=== PATIENT | male | born 1995 | race African-American/Black ===

== ENCOUNTER 2021-02-26 05:23 | Emergency (ER) | payer OTHER ==
[~2021-02-26] VITALS: Ht 175.3 cm; Wt 69.5 kg
[2021-02-26] MEDS ORDERED: FLON27.5 NARES (05:29)
[2021-02-26 07:02] LABS: BASO # 0.1 10^3/uL (0.0-0.2); BASO % 0.6 % (0.0-1.0); EOS # 0.1 10^3/uL (0.0-0.5); EOS % 0.7 % (0.0-3.0); HEMATOCRIT 44.2 % (42.0-52.0); HEMOGLOBIN 15.3 g/dl (13.5-17.5); LYMPH # 1.2 10^3/uL (1.5-5.0); LYMPH % 13.8 % (24.0-44.0); MEAN CORPUSCULAR HEMOGLOBIN 31.9 pg (27.0-33.0); MEAN CORPUSCULAR HGB CONC 34.6 g/dl (32.0-36.5); MEAN CORPUSCULAR VOLUME 92.1 fl (80.0-96.0); MONO # 0.7 10^3/uL (0.0-0.8); MONO % 7.7 % (2.0-8.0); NEUTROPHILS # 6.6 10^3/uL (1.5-8.5); NEUTROPHILS % 75.1 % (36.0-66.0); PLATELET COUNT, AUTOMATED 208 10^3/uL (150-450); WHITE BLOOD COUNT 8.7 10^3/uL (4.0-10.0)
[2021-02-26 07:33] LABS: CALCIUM LEVEL 8.8 MG/DL (8.5-10.1); CREATININE FOR GFR 1.71 MG/DL (0.70-1.30); GLOMERULAR FILTRATION RATE 52.2 (>60); POTASSIUM SERUM 4.2 MEQ/L (3.5-5.1); THYROID STIMULATING HORMONE 2.02 uIU/ML (0.358-3.740)
[2021-02-26] MEDS ORDERED: NS 1,000 ML IV ONE ×2 (07:35→09:25)
--- NOTE | 2021-02-26 07:51 | ECGEPIP ---
[facility] - ED Test Date: 2021-02-26 Pat Name: JUAN ANTONIO ARRIAGA Department: Room: - Gender: Male Rn Managed Care: susy : 1995 Requested By: PORTER Dhillon Order Number: [id number] Reading MD: Porter Stone Measurements Intervals [place]yer Rate: 85 P: 75 ND: 160 QRS: 70 QRSD: 86 T: 50 QT: 378 QTc: 449 Interpretive Statements Normal sinus rhythm Possible Left atrial enlargement ST elevation, probably due to early repolarization Comparison tracing not on file Electronically Signed on 02-26-2021 7:51:31 EDT by Porter Stone
[2021-02-26 10:21] VITALS: BP 120/82
== END 2021-02-26 10:32 | disposition home or self-care (01) ==
LOC: M ED 05:23
DX: R55 Syncope and collapse (principal); E86.0 Dehydration; N17.9 Acute kidney failure, unspecified; S80.212A Abrasion, left knee, initial encounter; W01.0XXA Fall on same level from slipping, tripping and stumbling without subsequent striking against object, initial encounter; Y92.410 Unspecified street and highway as the place of occurrence of the external cause; Y93.02 Activity, running; Y99.9 Unspecified external cause status